=== PATIENT | male | born 1960 | race Caucasian/White ===

== ENCOUNTER → 2017-02-27 | Outpatient (CLI) | payer OTHER | LOC: SOLHO 10:41 | PROVIDERS: ATTEND Family Medicine | DX: I67.9 Cerebrovascular disease, unspecified (principal) ==

== ENCOUNTER 2017-05-13 08:19 | Inpatient (IN) | payer OTHER ==
[2017-05-13] MEDS ORDERED: HYDROcodone 7.5MG/APAP 325MG 1 EA TAB PO ONE (08:42)
--- NOTE | 2017-05-13 08:46 | ED.PDOC ---
History of Present Illness - General Chief Complaint: Back Pain or Injury Stated Complaint: Patient fell @ home injuring low back Time Seen by Provider: 05/13/17 08:37 Source: patient, RN notes reviewed, Vital Signs reviewed, family, EMS Exam Limitations: no limitations - History of Present Illness Initial Comments: Patient comes in with low back/buttock pain after a fall at home. Reports he was putting his coat on and lost his balance and fell straight down onto his bottom. Denies any other injury from this fall but he did fall last week injuring his R ribs. EMS found his oxygen saturation to be 85% on RA at home. 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 His biggest complaint is actually his R ribs. Occurred: just prior to arrival Severity: moderate Injuries/Pain Location: chest - from fall last week, back, pelvis Reason for Fall: lost balance Loss of Consciousness: no loss of consciousness Improving Factors: rest Worsening Factors: movement Associated Symptoms (Fall): denies symptoms - except as above Allergies/Adverse Reactions: Allergies Ibuprofen Allergy (Verified 05/13/17 09:18) Penicillins Allergy (Verified 03/23/16 19:08) Home Medications: Ambulatory Orders Carvedilol 25 mg PO BID 03/23/16 Clonazepam 0.5 mg PO TID 03/23/16 Clopidogrel Bisulfate [Plavix] 75 mg PO QD 03/23/16 Duloxetine HCl 60 mg PO DAILY 03/23/16 amLODIPine BESYLATE [Norvasc] 5 mg PO BEDTIME #30 tab 03/26/16 Amitriptyline HCl [Elavil 100MG] 100 mg PO BEDTIME 05/13/17 Cetirizine HCl 10 mg PO DAILY 05/13/17 Docusate Sodium [Colace Cap] 100 mg PO BID 05/13/17 Duloxetine HCl 30 mg PO DAILY 05/13/17 HYDROcodone 7.5MG/APAP 325MG [[place] 7.5/325] 1 ea PO QID 05/13/17 Venlafaxine HCl 200 mg PO BEDTIME 05/13/17 Review of Systems - Review of Systems Constitutional: States: no symptoms reported EENTM: States: no symptoms reported Respiratory: States: cough, other - R rib pain Cardiology: States: no symptoms reported Gastrointestinal/Abdominal: States: no symptoms reported Musculoskeletal: States: see HPI, back pain - lumbar and R posterior pelvis Skin: States: no symptoms reported Neurological: States: no symptoms reported, pre-existing deficit - R sided paralysis All other Systems: No Change from Baseline Past Medical History (General) - Patient Medical History Hx Seizures: No Hx Stroke: Yes - Jul 13 2015 Hx Asthma: No Hx of COPD: No Hx Congestive Heart Failure: No Hx Pacemaker: No Hx Hypertension: Yes - pt has had for years takes meds. Hx Diabetes: No Hx Cancer: No Hx Hepatitis C: No Hx MRSA: No - Vaccination History Hx Tetanus, Diphtheria Vaccination: - unk Hx Influenza Vaccination: - unk Hx Pneumococcal Vaccination: - unk - Social History Hx Tobacco Use: No Hx Chewing Tobacco Use: No Hx Alcohol Use: No Hx Substance Use: No Hx Substance Use Treatment: No Hx Depression: No Hx Physical Abuse: No Hx Emotional Abuse: No Hx Suspected Abuse: No - Female History Patient : No Physical Exam - Physical Exam General Appearance: Alert, Comfortable, No apparent distress, Well Developed, Well Groomed, Well Hydrated, Well Nourished Head Injury: no evidence of injury ENT Exam: hearing grossly normal, no evidence of ENT injury, no dental injury Cardiovascular/Respiratory: regular rate, rhythm, no M/R/G, rhonchi - on Right, other - decreased breath sounds R lower lung/ tender over R lower ribs Gastrointestinal/Abdominal: normal bowel sounds, non tender, soft, no organomegaly Back Exam: no CVA tenderness, vertebral tenderness - over mid lumbar spine and R posterior pelvis/sacrum Extremity Exam: no evidence of injury, non-tender, no pedal edema Neurologic: alert, normal mood/affect, oriented x 3 Skin Exam: normal color, warm/dry - [place] Coma Score Best Eye Response ([place]): (4) open spontaneously Best Verbal Response ([place]): (5) oriented Best Motor Response ([place]): (6) obeys commands [place] Total: 15 Progress - Progress Progress: 05/13/17 10:[address] Renteria. Will admit for pneumonia, hypoxia and pain control for L1 compression fx. - EKG/XRAY/CT XRAY: chest - RLL pneumonia/ Ribs: R 7th & 8th rib fxs - Additional EKG/XRAY/Consults XRAY #2: L-Spine: L1 compression Fx XRAY #3: pelvis - /sacrum: no fractures Departure - Departure Clinical Impression: Hypoxia Right lower lobe pneumonia Qualifiers: Pneumonia type: due to unspecified organism Qualified Code(s): J18.1 - Lobar pneumonia, unspecified organism Compression fracture of L1 lumbar vertebra Qualifiers: Encounter type: initial encounter Fracture type: closed Qualified Code(s): S32.010A - Wedge compression fracture of first lumbar vertebra, initial encounter for closed fracture Ribs, multiple fractures Qualifiers: Encounter type: initial encounter Fracture type: closed Laterality: right Qualified Code(s): S22.41XA - Multiple fractures of ribs, right side, initial encounter for closed fracture Time of Disposition: 10:07 Disposition: Admit Patient Condition: Fair Departure Forms: ED Discharge - Pt. Copy, Patient Portal Self Enrollment Instructions: DI for Low Back Pain Referrals: Sukh Jensen III, MD [Primary Care Provider] - 1-2 Weeks Home Medications: Ambulatory Orders Carvedilol 25 mg PO BID 03/23/16 Clonazepam 0.5 mg PO TID 03/23/16 Clopidogrel Bisulfate [Plavix] 75 mg PO QD 03/23/16 Duloxetine HCl 60 mg PO DAILY 03/23/16 amLODIPine BESYLATE [Norvasc] 5 mg PO BEDTIME #30 tab 03/26/16 Amitriptyline HCl [Elavil 100MG] 100 mg PO BEDTIME 05/13/17 Cetirizine HCl 10 mg PO DAILY 05/13/17 Docusate Sodium [Colace Cap] 100 mg PO BID 05/13/17 Duloxetine HCl 30 mg PO DAILY 05/13/17 HYDROcodone 7.5MG/APAP 325MG [[place] 7.5/325] 1 ea PO QID 05/13/17 Venlafaxine HCl 200 mg PO BEDTIME 05/13/17 Decision To Admit - Decistion To Admit Decision to Admit Reason: Admit from ER Decision to Admit Date: 05/13/17 Decision to Admit Time: 10:05
--- NOTE | 2017-05-13 09:41 | RAD ---
EXAM DESCRIPTION: Chest,2 Views CLINICAL HISTORY: Cough/hypoxia/dec. BS R COMPARISON: CTA chest March 23, 2016 and a previous chest radiograph also from March 23, 2016. FINDINGS: Accounting for slight rotation, the cardiomediastinal silhouette is unremarkable. Some alveolar opacity in the right lung base which is new from the previous study and suspicious for pneumonia. Mild subsegmental atelectasis or scarring is noted in the left lung base. No definite pleural effusion. The lung volumes are within normal range. There is no pneumothorax or acute fracture. IMPRESSION: Right basilar pneumonia. Follow-up chest radiograph after treatment is recommended to document resolution. Electronically signed by: Wilfredo Cabrera MD 05/13/2017 9:40 AM [facility]
--- NOTE | 2017-05-13 09:43 | RAD ---
EXAM DESCRIPTION: Pelvis CLINICAL HISTORY: 56 years Male, pain s/p fall COMPARISON: None. FINDINGS: Single AP view of the pelvis was obtained. The left greater trochanter is partially excluded from this exam, but no displaced pelvic fracture or malalignment is seen. Vascular calcifications are noted. No additional soft tissue abnormality. IMPRESSION: Vascular calcifications, but no acute pelvic abnormality. If clinical suspicion of pelvic injury persists, CT should be considered. Electronically signed by: Wilfredo Cabrera MD 05/13/2017 9:41 AM [facility]
--- NOTE | 2017-05-13 09:45 | RAD ---
EXAM DESCRIPTION: Ribs,Right 3 Views CLINICAL HISTORY: pain s/p fall COMPARISON: None available FINDINGS: 3 views of the right-sided ribs show non or minimally displaced fractures involving the far anterolateral aspects of the right seventh and eighth ribs. No segmental rib fracture or pneumothorax. There is subsegmental atelectasis, contusion or pneumonia in the right lung base. No right-sided pleural fluid collection is identified. IMPRESSION: Non or minimally displaced fractures involving the right seventh and eighth ribs. No segmental rib fracture or pneumothorax. Abnormal appearance of the right lung base, different considerations include contusion, atelectasis or pneumonia. Electronically signed by: Wilfredo Cabrera MD 05/13/2017 9:44 AM [facility]
--- NOTE | 2017-05-13 09:46 | RAD ---
EXAM DESCRIPTION: Sacrum Coccyx CLINICAL HISTORY: 56 years Male, pain s/p fall COMPARISON: None. FINDINGS: 3 views of the sacrum and coccyx show no displaced sacral or coccygeal fracture. The sacroiliac joints are well-maintained. No soft tissue abnormality. IMPRESSION: Negative exam. Electronically signed by: Wilfredo Cabrera MD 05/13/2017 9:44 AM [facility]
--- NOTE | 2017-05-13 09:47 | RAD ---
EXAM DESCRIPTION: Lumbar Spine 3 Views CLINICAL HISTORY: 56 years Male, pain s/p fall COMPARISON: None. FINDINGS: 3 views of the lumbar spine show mild anterior compression of the L1 vertebral body with slightly irregular appearance of the superior endplate suspicious for fracture. No additional vertebral body fracture or subluxation is identified. There is a large amount of stool and gas scattered throughout the colon. IMPRESSION: L1 compression fracture resulting in approximately 20-30% loss of anterior vertebral body height, possibly acute. CT or MRI could be performed for further evaluation if clinically relevant. No additional acute lumbar spine abnormality. Electronically signed by: Wilfredo Cabrera MD 05/13/2017 9:46 AM [facility]
[2017-05-13] MEDS ORDERED: levoFLOXacin 500MG IV 500 MG in PREMIX BAG 1 BAG IVPB ONE (10:04)
[2017-05-13] MEDS ORDERED: levoFLOXacin 500MG IV 100 ML IVPB ONE (10:27)
[2017-05-13] MEDS ORDERED: ONDANSETRON INJ 4 MG/2 ML VIAL IV PRN (13:32)
[2017-05-13] MEDS: MORPHINE SULFATE INJ 10 MG/ML VIAL IV PRN ×3 (14:13→18:37)
[2017-05-13] MEDS ORDERED: HYDROcodone 7.5MG/APAP 325MG 1 EA TAB PO PRN (16:00)
[2017-05-13] MEDS: SODIUM CHLORIDE 0.9% 1000ML 1,000 ML IVS PRN (16:12)
[2017-05-13] MEDS ORDERED: CLOPIDOGREL 75 MG TAB PO SCH (16:30)
[2017-05-13] MEDS ORDERED: traMADol HCL 50 MG TAB PO PRN (16:30)
[2017-05-13] MEDS: DULoxetine HCL 30 MG CAP PO SCH (17:26)
[2017-05-13] MEDS: [UNRECOGNIZED DRUG - REMARK] PO SCH (17:26)
[2017-05-13] MEDS: IV SET AND CAP CHANGE INJ INJ SCH (17:27)
[2017-05-13] MEDS: HYDROcodone 7.5MG/APAP 325MG 1 EA TAB PO SCH ×2 (17:28→21:19)
[2017-05-13] MEDS: IPRATROPIUM/ALBUTEROL 3 ML VIAL NEB SCH ×2 (17:47→20:24)
--- NOTE | 2017-05-13 18:19 | HP ---
HISTORY OF PRESENT ILLNESS: This 56 year-old white male has been quite significantly disabled because of right sided weakness after a CVA which occurred in June of 2014. At the present time, he is having difficulty speaking and has had some severe fall episodes recently. Earlier today while at home where he lives with his parents, he fell with his quad cane not providing enough firm reference to keep him from falling. He fell backwards and sat down hard on the floor and was unable to get up because of pain in his back. He has been on hospice care at home because of advanced disability from his CVA. In the Emergency Room, he was found to have a room air saturation of only 85%. A few days previously at a time which he cannot recall, he fell up against something and injured his right ribs. This has resulted in some pleuritic component when he would take deep breaths. He has been undergoing rehabilitation at the [facility] until a few weeks ago when he stopped going and feels that he is a little weaker now after having stopped going to rehab. He was admitted to the hospital when a right lower lobe pneumonia was found on x-ray in proximity to 2 broken ribs from a recent fall. PAST MEDICAL HISTORY: 1. Hypertension. 2. Cerebrovascular accident which occurred in June of either 2014 which he states or 2015. PAST SURGICAL HISTORY: 1. Coronary angiography at [facility]. CURRENT MEDICATIONS: Please refer to the complete list of verified medicines taken at home. ALLERGIES: PENICILLIN WHICH GIVE HIM A RASH. FAMILY HISTORY: Positive for coronary artery disease and chronic obstructive pulmonary disease. 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 He stopped smoking about 2 years ago and also stopped chewing tobacco at that time. REVIEW OF SYSTEMS: He has had some recent weight gain. No fever or chills. HEENT: Some difficulty speaking and with balance. He has not injured his head with his recent falls. LUNGS: Some shortness of breath upon exertion. CARDIOVASCULAR: He does have some chest pain laterally on the right after an injury and a pleuritic component when he breathes deeply also on the right. No hemoptysis or significant sputum production. ABDOMEN: Appetite has been fairly good recently. No bleeding in the bowel movements. GENITOURINARY: No dysuria. EXTREMITIES: Right side is weak. NEUROLOGIC: History of CVA with right sided weakness and some slight slurring of speech with the patient being right handed. The patient has significant disability living with his parents at home and hospice care with [facility] has been helping. PHYSICAL EXAMINATION: VITAL SIGNS: Afebrile, pulse 66, blood pressure 111/71, pulse oximetry 94% on 3 liters nasal cannula. Apparently it was down to 85 as recorded by EMS on their initial evaluation. GENERAL: The patient is able to answer questions. There is a slight degree of confusion at times, especially as it relates to dates. His mother also came in and was very helpful to add to the collection of health information. HEENT: Hearing appears to be fairly good. Speech is somewhat slurred at times. NECK: Supple. No adenopathy. CHEST: Lungs have some diminished breath sounds especially in the right base with some rhonchi more on the right base than the left. CARDIOVASCULAR: Tones are regular without any significant gallops. ABDOMEN: Soft though slightly distended and no organomegaly or masses or tenderness evident. EXTREMITIES: Decreased muscular strength and coordination of the right extremities. NEUROLOGIC: History of CVA in the past with residual right hemiparesis as well as some difficulty with dysarthria. No choking spells. LABORATORY: White count is 12,200 with 77% neutrophils, hemoglobin is up to 16.1. Potassium 4.3, BUN 8, creatinine 0.56, glucose 93. Liver enzymes are normal. Albumin 4.4. Urinalysis is clean. RADIOLOGY: X-rays of the lumbar spine reveal about a 20 to 30% compression fracture of the L1 vertebrae. Sacrum and coccyx showed no acute fractures. Ribs showed fractures of the right sided seventh and eighth ribs with underlying infiltrate. Chest x-ray does show evidence of a right lower lobe pneumonia apparently related somewhat to the rib fractures. Could be a pulmonary contusion. ASSESSMENT: 1. Acute right lower lobe pneumonia probable community acquired versus pulmonary contusion from injury to the rib cage. 2. Multiple rib fractures especially involving right seventh and eighth ribs. 3. Hypoxia requiring oxygen supplementation possibly related to a shunt because of the pulmonary contusion and/or infiltrative inflammatory pneumonia. 4. Acute fall from standing position. 5. Resultant L1 vertebral compression fracture of about 20 to 30% noted. Continue to observe symptoms and if not improving consider MRI to evaluate for retropulsed fragments. 6. History of acute cerebrovascular accident with residual right sided hemiparesis in June of a year ago or more. 7. Possibility of some underlying chronic obstructive pulmonary disease in a chronic smoker now stopped. PLAN: The patient is admitted to the hospital for initiation of special care under hospice inpatient supervision. He will be given low flow IV solution with Levaquin IV for underlying right lower lobe pneumonia. Analgesia for fractured ribs and vertebral fracture to continue. Special attention to increase strength and ability as his strength improves to the point where he will be able to continue with rehabilitation as an outpatient. Eventually can be cared for by Dr. Jensen when he is able to return home from his hospital stay. Dr. Jacobs will be very helpful in helping to manage him in the interim during Dr. Jensen' absence. Please refer to orders. #[id number] MTDD
[2017-05-13] MEDS ORDERED: HYDROmorphone HCL INJ 2 MG/ML VIAL IV ONE (19:42)
[2017-05-13] MEDS: SODIUM CHLORIDE 0.9% (FLUSH) 10 ML SYG IV PRN ×3 (19:58→23:11)
[2017-05-13] MEDS ORDERED: HYDROcodone 7.5MG/APAP 325MG 1 EA TAB PO SCH (20:00)
[2017-05-13] MEDS ORDERED: VENLAFAXINE HCL 150 MG PO SCH (21:00)
[2017-05-13] MEDS ORDERED: AMLODIPINE BESYLATE 5 MG PO SCH (21:00)
[2017-05-13] MEDS ORDERED: AMITRIPTYLINE HCL 150 MG PO SCH (21:00)
[2017-05-13] MEDS ORDERED: DOCUSATE SODIUM 100 MG CAP PO SCH (21:00)
[2017-05-13] MEDS ORDERED: CLONAZEPAM 0.5 MG PO SCH (21:00)
[2017-05-13] MEDS ORDERED: NON-FORMULARY MEDICATION 1 EA MIS (Duloxetine Hcl [Duloxetine Hcl] 60 MG) PO SCH (21:00)
[2017-05-13] MEDS: VENLAFAXINE 150 MG PO SCH (21:14)
[2017-05-13] MEDS: AMITRIPTYLINE 150 MG PO SCH (21:14)
[2017-05-13] MEDS: GUAIFENESIN 400 MG PO SCH (21:15)
[2017-05-13] MEDS: CARVEDILOL 25 MG PO SCH (21:16)
[2017-05-13] MEDS: amLODIPine BESYLATE 5 MG TAB PO SCH (21:17)
[2017-05-13] MEDS: DOCUSATE SODIUM 100 MG CAP PO SCH (21:17)
[2017-05-13] MEDS: HYDROmorphone HCL INJ 2 MG/ML VIAL IV PRN ×2 (21:28→23:11)
[2017-05-14] MEDS: NON-FORMULARY MEDICATION 1 EA MIS (Carvedilol [Carvedilol] 25 MG) PO SCH ×2 (00:06→19:48)
[2017-05-14] MEDS: SODIUM CHLORIDE 0.9% (FLUSH) 10 ML SYG IV PRN ×3 (00:42→15:36)
[2017-05-14] MEDS: HYDROmorphone HCL INJ 2 MG/ML VIAL IV PRN ×7 (00:43→21:19)
[2017-05-14] MEDS: IPRATROPIUM/ALBUTEROL 3 ML VIAL NEB SCH ×4 (08:57→21:09)
[2017-05-14] MEDS ORDERED: DULOXETINE HCL 30 MG PO SCH (09:00)
[2017-05-14] MEDS ORDERED: DULoxetine HCL 30 MG CAP PO SCH (09:00)
[2017-05-14] MEDS: HYDROcodone 7.5MG/APAP 325MG 1 EA TAB PO SCH ×4 (10:03→21:24)
[2017-05-14] MEDS: DOCUSATE SODIUM 100 MG CAP PO SCH ×2 (10:04→21:18)
[2017-05-14] MEDS: CARVEDILOL 25 MG PO SCH ×2 (10:05→21:25)
[2017-05-14] MEDS: CLOPIDOGREL 75 MG TAB PO SCH (10:05)
[2017-05-14] MEDS: GUAIFENESIN 400 MG PO SCH ×3 (10:05→21:21)
[2017-05-14] MEDS: DULoxetine HCL 30 MG CAP PO SCH (10:06)
[2017-05-14] MEDS: [UNRECOGNIZED DRUG - REMARK] PO SCH (10:06)
[2017-05-14] MEDS: POLYETHYLENE GLYCOL 3350 17 GM PCKT PO SCH (10:08)
[2017-05-14] MEDS: SODIUM CHLORIDE 0.9% 1000ML 1,000 ML IVS PRN (10:18)
[2017-05-14] MEDS ORDERED: levoFLOXacin 500MG IV 100 ML IVPB ONE (14:08)
[2017-05-14] MEDS: levoFLOXacin 500MG IV 500 MG in PREMIX BAG 1 BAG IVPB SCH (14:37)
[2017-05-14] MEDS: VENLAFAXINE 150 MG PO SCH (21:21)
[2017-05-14] MEDS: AMITRIPTYLINE 150 MG PO SCH (21:24)
[2017-05-14] MEDS: amLODIPine BESYLATE 5 MG TAB PO SCH (21:25)
[2017-05-15] MEDS: HYDROmorphone HCL INJ 2 MG/ML VIAL IV PRN ×2 (00:43→20:06)
[2017-05-15] MEDS: SODIUM CHLORIDE 0.9% 1000ML 1,000 ML IVS PRN (06:44)
[2017-05-15] MEDS ORDERED: levoFLOXacin 500MG IV 100 ML IVPB ONE (08:20)
[2017-05-15] MEDS: IPRATROPIUM/ALBUTEROL 3 ML VIAL NEB SCH ×4 (09:04→20:51)
[2017-05-15] MEDS: POLYETHYLENE GLYCOL 3350 17 GM PCKT PO SCH (09:43)
[2017-05-15] MEDS: DOCUSATE SODIUM 100 MG CAP PO SCH ×2 (09:44→20:36)
[2017-05-15] MEDS: [UNRECOGNIZED DRUG - REMARK] PO SCH (09:45)
[2017-05-15] MEDS: DULoxetine HCL 30 MG CAP PO SCH (09:45)
[2017-05-15] MEDS: GUAIFENESIN 400 MG PO SCH ×3 (09:46→20:36)
[2017-05-15] MEDS: CLOPIDOGREL 75 MG TAB PO SCH (09:48)
[2017-05-15] MEDS: HYDROcodone 7.5MG/APAP 325MG 1 EA TAB PO SCH ×3 (09:48→18:44)
[2017-05-15] MEDS: CARVEDILOL 25 MG PO SCH ×2 (09:50→20:37)
[2017-05-15] MEDS: levoFLOXacin 500MG IV 500 MG in PREMIX BAG 1 BAG IVPB SCH (15:29)
[2017-05-15] MEDS: VENLAFAXINE 150 MG PO SCH (20:36)
[2017-05-15] MEDS: amLODIPine BESYLATE 5 MG TAB PO SCH (20:37)
[2017-05-15] MEDS: AMITRIPTYLINE 150 MG PO SCH (20:37)
[2017-05-16] MEDS: HYDROmorphone HCL INJ 2 MG/ML VIAL IV PRN (00:11)
[2017-05-16] MEDS: HYDROcodone 7.5MG/APAP 325MG 1 EA TAB PO SCH ×4 (00:11→18:38)
[2017-05-16] MEDS: SODIUM CHLORIDE 0.9% 1000ML 1,000 ML IVS PRN (00:13)
[2017-05-16] MEDS: IPRATROPIUM/ALBUTEROL 3 ML VIAL NEB SCH ×4 (08:19→20:58)
[2017-05-16] MEDS: POLYETHYLENE GLYCOL 3350 17 GM PCKT PO SCH (09:40)
[2017-05-16] MEDS: [UNRECOGNIZED DRUG - REMARK] PO SCH (09:41)
[2017-05-16] MEDS: GUAIFENESIN 400 MG PO SCH ×3 (09:41→21:26)
[2017-05-16] MEDS: CLOPIDOGREL 75 MG TAB PO SCH (09:41)
[2017-05-16] MEDS: DULoxetine HCL 30 MG CAP PO SCH (09:41)
[2017-05-16] MEDS: CARVEDILOL 25 MG PO SCH ×2 (09:43→21:46)
[2017-05-16] MEDS: DOCUSATE SODIUM 100 MG CAP PO SCH ×2 (09:43→21:26)
[2017-05-16] MEDS ORDERED: KCL 20MEQ/0.45% NS 1,000 ML IVS PRN (12:56)
[2017-05-16] MEDS ORDERED: ALBUTEROL SULFATE 2.5 MG/3 ML VIAL NEB PRN (13:05)
--- NOTE | 2017-05-16 13:05 | RAD ---
Procedure: XR CHEST 1 VIEW Exam Date: 05/16/2017 12:02 PM LABORATORY MONITOR Ordering Provider: Herman Hargrove NP Clinical Indication: RLL pneumonia Comparison: May 13, 2017 Findings: There is right upper and midlung zone confluent opacity. This is more conspicuous compared to previous exam. Groundglass opacification is also seen throughout the left lung primarily involving the lateral one thirds of the left hemithorax. Trace bilateral pleural effusions are present. There is no pneumothorax. Heart size is upper limits of normal. Impression: Findings compatible with multilobar pneumonia with dense consolidation seen in the right upper and midlung zones. Recommend continued follow-up to document resolution. Electronically signed by: Denilson Watts MD 05/16/2017 1:03 PM LABORATORY MONITOR
[2017-05-16] MEDS ORDERED: methylPREDNISolone SODIUM SUC 125 MG/2 ML VIAL IV ONE (13:07)
[2017-05-16] MEDS: levoFLOXacin 750MG IV 750 MG in PREMIX BAG 1 BAG IVPB SCH (13:51)
[2017-05-16] MEDS: KCL 20MEQ/D5 1/2NS 1,000 ML IVS PRN ×2 (13:52→23:27)
[2017-05-16] MEDS ORDERED: SODIUM CHL 0.9% 50ML MIN-BAG+ 50 ML IVPB ONE ×2 (16:45→23:09)
[2017-05-16] MEDS ORDERED: CEFEPIME 2 GM VIAL IVPB ONE ×2 (16:45→23:09)
[2017-05-16] MEDS: CEFEPIME 2 GM in SODIUM CHL 0.9% 50ML MIN-BAG+ 50 ML IVPB SCH ×2 (16:46→23:31)
[2017-05-16] MEDS: IV SET AND CAP CHANGE INJ INJ SCH (16:47)
[2017-05-16] MEDS: SODIUM CHLORIDE 0.9% (FLUSH) 10 ML SYG IV PRN (17:36)
--- NOTE | 2017-05-16 19:29 | PCM.CORE ---
Physician DVT/VTE - Nurse DVT Assessment & Total Each Risk Factor Represents 3 Points: Medical PT with Hx of UT, CHF, Severe infection/sepsis Each Risk Factor Represents 2 Points: Confined to bed >72 hours Each Risk Factor Represents 1 Point: Age 41-60, Hx of smoking past year Each Risk Factor is 1 Point: Obesity (BMI >25) DVT Assessment Score: 8 - 5 or more Very High Risk Treatments: Early Ambulation *, Sequential Compression Device Pharmacological: Enoxaparin 40mg SQ Daily
[2017-05-16] MEDS: ENOXAPARIN SODIUM 40 MG/0.4 ML SYG SUBCU SCH (21:20)
[2017-05-16] MEDS: VENLAFAXINE 150 MG PO SCH (21:25)
[2017-05-16] MEDS: AMITRIPTYLINE 150 MG PO SCH (21:44)
[2017-05-16] MEDS: amLODIPine BESYLATE 5 MG TAB PO SCH (21:46)
[2017-05-17] MEDS: HYDROcodone 7.5MG/APAP 325MG 1 EA TAB PO SCH ×4 (00:53→18:13)
[2017-05-17] MEDS: HYDROmorphone HCL INJ 2 MG/ML VIAL IV PRN ×3 (03:16→15:36)
[2017-05-17] MEDS ORDERED: SODIUM CHL 0.9% 50ML MIN-BAG+ 50 ML IVPB ONE ×2 (08:07→15:37)
[2017-05-17] MEDS ORDERED: CEFEPIME 2 GM VIAL IVPB ONE ×2 (08:08→15:37)
[2017-05-17] MEDS: IPRATROPIUM/ALBUTEROL 3 ML VIAL NEB SCH ×4 (08:30→20:15)
--- NOTE | 2017-05-17 09:01 | PN ---
SUPERVISING PHYSICIAN: Octavio Jacobs MD DATE: 05/16/17 SUBJECTIVE: The patient was admitted on 05/13/17 under inpatient hospice care for initiation of antibiotics for right lower lobe pneumonia. He was initiated on antibiotics initially, but has not made any significant improvements. Hospice requested that I see the patient and assist with medical care and treatment plan. This morning, the patient was showing low saturations in the 70s even with a Ventimask. At the time of exam this morning, the patient was resting comfortably with a Ventimask in place, showing to be in no distress. After review of vital signs since admission, he has run a low grade fever of about 100.2. His saturations on high flow nasal cannula and Ventimask was 74% this morning and the patient was apparently showing some increased respiratory effort. He is on morphine and Ativan for patient comfort as well. I have ordered laboratory studies, x-rays and ABG. OBJECTIVE: VITAL SIGNS: T-max 100.2. Pulse 80. Blood pressure 120/77. Respirations significant at 36. Saturation on Ventimask is 85% and 88%. I&Os show positive balance of 224 with 1674 in, 1450 out. Weight 103.3 kg. CHEST: Lung sounds are diminished throughout with faint inspiratory and expiratory wheezing with coarse sounds overlying the posterolateral right lung cunningham. HEART: Regular rate and rhythm without appreciable murmurs, gallops, or rubs. ABDOMEN: Soft, nontender. Positive bowel sounds. EXTREMITIES: No cyanosis, clubbing or edema. NEUROLOGIC: The patient is lethargic, but will respond to voice command with opening his eyes and answering basis questions, but easily falls back to sleep. The patient has a history of CVA in the past with residual right hemiparesis with some difficulty. Per the patient's family, mental status has changed in the fact that he is less responsive, but he is on multiple pain medications as well. He has no history of choking spells, but again he does have a history of CVA in the past. LABORATORY: White count 13,200 compared to admission of 12,200 and previous 24 hours 11,600. Hemoglobin and hematocrit are stable at 14.7 and 43.3. Platelet count 285,000. Differential without an obvious left shift. Blood gasses show pH 7.4 with PC02 38, PC02 50, bicarb 23. Saturation 86% on 50% Ventimask. Chemistries show normal electrolytes with potassium 3.7, BUN 10, creatinine 0.46 , glucose 106. Liver functions within normal limits. Magnesium low at 2.0. Repeat urinalysis showed just trace intact blood with trace leukocytosis, otherwise within normal limits. MICROBIOLOGY: Urine culture on admission showed no growth at 48 hours. He has 2 sets of blood cultures that have been negative for 3 days. RADIOLOGY: Chest x-ray show findings compatible with multilobular pneumonia with a dense consolidation within the right upper and mid lung zones per radiologic interpretation. Review of previous x-rays prior to admission on because apparently the patient has had some falls, lumbar spine x-ray showed L1 compression fracture resulting in approximately 20% to 30% loss of anterior vertebral body height, possible acute. He also had sacrum and coccyx x -ray and per radiologic interpretation was negative. Rib series showed non and minimally displaced fractures involving the right seventh and eighth ribs. No segmental rib fracture, pneumothorax and abnormal appearance of the right lung base noted per radiologic interpretation. He also had a pelvis x-ray that showed vascular calcifications, no acute pelvic abnormality. ASSESSMENT: 1. Acute right middle and upper lobe pneumonia, probably community acquired with concerns for pseudomonas or possible aspiration event as being etiology of pneumonia with the patient having previous cerebrovascular accidents with risk for choking episodes and showing acute decline in condition despite initiation of Levaquin, with an underlying pulmonary contusion status post acute rib fracture involving the right seventh and eighth ribs status post fall with the patient having acute decline, showing an increasing leukocytosis with severe hypoxemia on arterial blood gas, requiring initiation of CPAP and initiation of additional parenteral antibiotics including increasing Levaquin to 750 and initiation of cefepime 2 grams q.8h. 2. Multiple rib fractures, especially involving right seventh and eighth ribs with concerns for underlying pulmonary contusion contributing to #1. 3. Hypoxia requiring more aggressive oxygen supplementation possibly related to a shunt for pulmonary contusion versus infiltrative inflammatory pneumonia as noted on current radiographic studies. 4. Acute same level fall resulting in acute vertebral compression fracture and multiple rib fractures. 5. L1 vertebral compression fracture of about 20 to 30% loss of height secondary previous same level fall with the patient requiring multiple analgesic medications. 6. History of acute cerebrovascular accident with residual right sided hemiparesis in June of 2015 with the patient currently under the care of [facility]. 7. Questionable underlying chronic obstructive pulmonary disease in a past smoker. PLAN: Hospice nurse for [facility] has visited with the family and on examination of the patient this morning requested that I see the patient to assist with the patient's plan of care. After visiting with the family, the family is wanting to be aggressive as possible, but no heroic efforts related to mechanical ventilation. They are okay with CPAP or BiPAP as needed. He has been on Levaquin 500 for the right sided pneumonia, but given that he has an acute change in his condition, I will increase his Levaquin to 750 and start him on cefepime 2 grams q.8h. for at least 24 hours with concerns for possible underlying pseudomonas with cultures pending. In regards to his analgesia plan , we will continue with the previous for the rib fractures and vertebral fractures. As he shows improvement clinically, we will plan on discharge planning as needed continued strengthening and further evaluation of the vertebral fracture. We will anticipate additional days in the hospital secondary to worsening of the condition of at least another 48 to 72 hours. He will be on CPAP as needed to help with oxygenation efforts and hopefully be able to titrate down to a nasal cannula. We will plan to repeat laboratory studies in the morning. Once clinically stable, the patient can transition back to outpatient hospice care under [facility]. Until then, we will continue to monitor the patient closely and treat appropriately. #[id number] [facility]
[2017-05-17] MEDS: CEFEPIME 2 GM in SODIUM CHL 0.9% 50ML MIN-BAG+ 50 ML IVPB SCH ×2 (09:15→15:39)
[2017-05-17] MEDS: DOCUSATE SODIUM 100 MG CAP PO SCH ×2 (09:20→20:46)
[2017-05-17] MEDS: [UNRECOGNIZED DRUG - REMARK] PO SCH (09:21)
[2017-05-17] MEDS: POLYETHYLENE GLYCOL 3350 17 GM PCKT PO SCH (09:21)
[2017-05-17] MEDS: DULoxetine HCL 30 MG CAP PO SCH (09:21)
[2017-05-17] MEDS: GUAIFENESIN 400 MG PO SCH ×3 (09:22→20:47)
[2017-05-17] MEDS: CLOPIDOGREL 75 MG TAB PO SCH (09:22)
[2017-05-17] MEDS: CARVEDILOL 25 MG PO SCH ×2 (09:22→20:46)
[2017-05-17] MEDS: KCL 20MEQ/D5 1/2NS 1,000 ML IVS PRN ×2 (09:49→21:13)
[2017-05-17] MEDS ORDERED: MAGNESIUM HYDROXIDE 30 ML UD PO PRN (12:24)
[2017-05-17] MEDS ORDERED: MAGNESIUM HYDROXIDE 30 ML UD PO ONE (12:26)
[2017-05-17] MEDS: levoFLOXacin 750MG IV 750 MG in PREMIX BAG 1 BAG IVPB SCH (13:42)
--- NOTE | 2017-05-17 16:00 | PN ---
DATE: 05/17/17 SUPERVISING PHYSICIAN: Octavio Jacobs M.D. SUBJECTIVE: The patient is feeling much better today. He is alert and talking. He actually was able to eat breakfast and he is able to maintain his O2 saturations on high flow nasal cannula. He has not had a fever in the last 24 hours. OBJECTIVE: VITAL SIGNS: T max 98.9, pulse 73, blood pressure 110/66, respirations 16, satting 94% on nasal cannula at 9 liters. I's and O's show a positive balance of 650 with 1675 in, 1025 out. Weight 103.3 kg. CHEST: Breath sounds are diminished but somewhat improved compared to yesterday. There is no obvious wheezing or rhonchi noted. HEART: Regular rate and rhythm. ABDOMEN: Obese but soft, non-tender. Positive bowel sounds. EXTREMITIES: No clubbing, cyanosis or edema. NEUROLOGIC: He was alert and oriented times three , conversing with his who reports that he is back to his baseline mental status. LABORATORY: White count is now normalized at 10,800 with hemoglobin 13.9, hematocrit 41.0, platelet count 298,000. Differential does show a left shift. Chemistries show normal electrolytes with potassium 4.3, BUN 17, creatinine 0.55 , glucose 172, calcium 8.0, magnesium 2.0 yesterday. RADIOLOGY: There are no new radiographic studies today. Will repeat a chest x- ray in the morning. ASSESSMENT: 1. Acute right middle and upper lobe pneumonia probably community acquired with concerns for Pseudomonas versus an aspiration event and likely etiology of the pneumonia with the patient having previous cerebrovascular accident and a slight risk of choking episode, and showing an acute decline in the past 24 hours requiring initiation of high dose Levaquin and Cefipime showing improvement along with initiation of CPAP. 2. Multiple rib fractures especially involving the right seventh and eighth ribs with concerns for an underlying pulmonary contusion contributing to #1. 3. Hypoxia requiring more aggressive oxygen supplementation secondary to a possible shunt from the pulmonary contusion as noted in #2 versus an infiltrative inflammatory pneumonia with radiographic studies showing an acute right sided pneumonia. 4. Acute same level fall resulting in vertebral compression fractures acutely with above-mentioned rib fractures. 5. L1 vertebral compression fracture with about 20 to 30% loss of height secondary to previous same level fall as noted above with the patient requiring multiple analgesic medications for pain control. 6. History of acute cerebrovascular accident with right sided hemiparesis in June of 2015 with the patient currently under the care of [facility]. 7. Chronic obstructive pulmonary disease in a past smoker with an exacerbation as noted from developing pneumonia in #1. PLAN: Will continue with current plan of care with Levaquin 750 daily and Cefipime 2 grams every 8 hours for an additional 24 hours and reassess clinically in the morning. She will be on CPAP as needed and has been titrated down to a high flow nasal cannula. If the patient does show clinical improvement, will hopefully be able to stop the Cefipime and continue with Levaquin, and transition to p.o. antibiotic coverage with anticipation of discharging home to continue with outpatient hospice care under [facility]. Will repeat chest x-ray and laboratory studies in the morning and until then continue to monitor and treat appropriately. #[id number] [facility]
[2017-05-17] MEDS: amLODIPine BESYLATE 5 MG TAB PO SCH (20:46)
[2017-05-17] MEDS: VENLAFAXINE 150 MG PO SCH (20:46)
[2017-05-17] MEDS: AMITRIPTYLINE 150 MG PO SCH (20:46)
[2017-05-17] MEDS: ENOXAPARIN SODIUM 40 MG/0.4 ML SYG SUBCU SCH (20:47)
[2017-05-18] MEDS ORDERED: CEFEPIME 2 GM VIAL IVPB ONE ×4 (00:16→23:37)
[2017-05-18] MEDS ORDERED: SODIUM CHL 0.9% 50ML MIN-BAG+ 50 ML IVPB ONE ×4 (00:16→23:37)
[2017-05-18] MEDS: CEFEPIME 2 GM in SODIUM CHL 0.9% 50ML MIN-BAG+ 50 ML IVPB SCH ×3 (00:18→15:40)
[2017-05-18] MEDS: HYDROcodone 7.5MG/APAP 325MG 1 EA TAB PO SCH ×4 (00:18→17:42)
[2017-05-18] MEDS: KCL 20MEQ/D5 1/2NS 1,000 ML IVS PRN (06:09)
[2017-05-18] MEDS: IPRATROPIUM/ALBUTEROL 3 ML VIAL NEB SCH ×4 (08:33→19:20)
--- NOTE | 2017-05-18 08:39 | RAD ---
EXAM DESCRIPTION: Chest,1 View CLINICAL HISTORY: 56 years Male, pneumonia COMPARISON: May 16, 2017 TECHNIQUE: Portable AP view FINDINGS: Mild congestive failure with partial interval improvement. The infiltrate within the right midlung has resolved. Persistent small effusions. IMPRESSION: Mild CHF. Small effusions. There has been some interval improvement Electronically signed by: Star Duran 05/18/2017 8:38 AM [facility]
[2017-05-18] MEDS: POLYETHYLENE GLYCOL 3350 17 GM PCKT PO SCH (09:23)
[2017-05-18] MEDS: [UNRECOGNIZED DRUG - REMARK] PO SCH (09:23)
[2017-05-18] MEDS: DOCUSATE SODIUM 100 MG CAP PO SCH ×2 (09:23→21:03)
[2017-05-18] MEDS: GUAIFENESIN 400 MG PO SCH ×3 (09:23→20:59)
[2017-05-18] MEDS: DULoxetine HCL 30 MG CAP PO SCH (09:23)
[2017-05-18] MEDS: CLOPIDOGREL 75 MG TAB PO SCH (09:23)
[2017-05-18] MEDS: CARVEDILOL 25 MG PO SCH ×2 (09:23→21:04)
[2017-05-18] MEDS ORDERED: ARFORMOTEROL TARTRATE 15 MCG/2 ML NEB NEB SCH (09:30)
[2017-05-18] MEDS: HYDROmorphone HCL INJ 2 MG/ML VIAL IV PRN ×3 (09:32→19:59)
[2017-05-18] MEDS: levoFLOXacin 750MG IV 750 MG in PREMIX BAG 1 BAG IVPB SCH (13:46)
--- NOTE | 2017-05-18 15:00 | PN ---
DATE: 05/18/17 SUPERVISING PHYSICIAN: Octavio Jacobs M.D. SUBJECTIVE: The patient continues to show improvement, although his white count did go up today. He has been afebrile and actually was able to do well overnight with the high flow nasal cannula. OBJECTIVE: VITAL SIGNS: T max 98.9, pulse 58, blood pressure 119/76 with respirations 20, satting 98% on nasal cannula on high flow at rest. I's and O' s show a positive balance of 3018 with 4093 in, 1075 out. He did have a large bowel movement. Weight is 103.3 kg. CHEST: Lung sounds are much improved today but continue to be diminished towards the bases bilaterally, but no rhonchi, wheezing or rales are noted. HEART: Regular rate and rhythm. ABDOMEN : Soft, non-tender. Positive bowel sounds. EXTREMITIES: No clubbing, cyanosis or edema. NEUROLOGIC: He is alert and oriented times three. LABORATORY: White count did go up to 14,300 today, hemoglobin 12.8, hematocrit 38.8, platelet count 347,000. Differential is within normal limits. Chemistries show normal electrolytes with potassium 4.3, BUN 17, creatinine 0.55. MICROBIOLOGY: Blood cultures remain negative after 5 days. Urine culture showed no growth at 48 hours. RADIOLOGY: Chest x-ray today per radiology interpretation shows mild congestive heart failure, small effusion. There is some small interval improvement. ASSESSMENT: 1. Acute right middle and upper lobe pneumonia community acquired with initial concerns for Pseudomonas versus aspiration event with the patient having previous cerebrovascular accident and some choking episodes having shown an acute decline requiring further aggressive management with a higher dose of Levaquin and initiation of Ceftin as well as initiation of CPAP now showing improvement clinically. 2. Multiple rib fractures of the right seventh and eighth ribs with concern for underlying pulmonary contusion contributing to #1. 3. Hypoxia requiring more aggressive oxygen supplementation secondary to possible shunt from pulmonary contusion as noted in #2 versus an infiltrative inflammatory pneumonia with radiographic studies showing acute right sided pneumonia showing improvement with initiation of antibiotics and utilizing CPAP. 4. Same level fall resulting in a vertebral compression fracture of L1 with about 20 to 30% loss of height secondary to previous same level fall as well as noted accompanying rib fractures with the patient requiring multiple analgesic medications for pain control. 5. Past cerebrovascular accident with right sided hemiparesis in June 2005 with the patient currently under the care of [facility]. 6. Chronic obstructive pulmonary disease in a past smoker with exacerbation as noted in #1 for developing pneumonia. PLAN: Will continue with current plan of care with Levaquin 750 as well as Cefipime for an additional 24 hours as he did show a slight increase in his leukocytosis which certainly could be secondary to some demarginalization from pain. Will closely monitor this and as he improves hopefully be able to deescalate his antibiotic regimen to Levaquin and transition to p.o. in anticipation of discharging home in the next day or two. Will keep close contact with [facility] on further management. He did have Physical Therapy evaluation today with requiring full assistance. Will need to work with [facility] on options for discharge in regards to the patient's need for assistance at home as the patient is again a fall risk until he has improvement in his strength. Until discharge, will continue to monitor and treat appropriately. Plan to repeat laboratory studies in the morning as well as a chest x-ray. #[id number] [facility]
[2017-05-18] MEDS: ENOXAPARIN SODIUM 40 MG/0.4 ML SYG SUBCU SCH (21:00)
[2017-05-18] MEDS: AMITRIPTYLINE 150 MG PO SCH (21:00)
[2017-05-18] MEDS: VENLAFAXINE 150 MG PO SCH (21:01)
[2017-05-18] MEDS: amLODIPine BESYLATE 5 MG TAB PO SCH (21:08)
[2017-05-19] MEDS: CEFEPIME 2 GM in SODIUM CHL 0.9% 50ML MIN-BAG+ 50 ML IVPB SCH ×2 (00:19→07:43)
[2017-05-19] MEDS: HYDROcodone 7.5MG/APAP 325MG 1 EA TAB PO SCH ×4 (00:21→18:26)
[2017-05-19] MEDS: KCL 20MEQ/D5 1/2NS 1,000 ML IVS PRN (05:03)
[2017-05-19] MEDS ORDERED: CEFEPIME 2 GM VIAL IVPB ONE (07:20)
[2017-05-19] MEDS ORDERED: SODIUM CHL 0.9% 50ML MIN-BAG+ 50 ML IVPB ONE (07:20)
--- NOTE | 2017-05-19 07:23 | RAD ---
Clinical History : pneumonia , MAIN Exam : Portable AP view of the chest 05/19/2017 7:00 AM [employer] Comparisons : Portable AP view of the chest May 18, 2017 Findings : The lungs are low in volume which accentuates the pulmonary vasculature. There is mild diffuse peribronchial thickening throughout the lungs bilaterally. There is confluent right upper lobe and retrocardiac airspace disease. There is a small left pleural effusion. The heart is stable in size. The mediastinal contours are normal in appearance. The thoracic spine is age appropriate. The shoulders are unremarkable. Limited evaluation of the upper abdomen demonstrates no gross abnormalities. Impression: Stable low lung volumes with right upper lobe and retrocardiac airspace disease. Electronically signed by: Lorin Mehta MD 05/19/2017 7:21 AM [employer]
[2017-05-19] MEDS: HYDROmorphone HCL INJ 2 MG/ML VIAL IV PRN ×3 (07:30→20:59)
[2017-05-19] MEDS: DOCUSATE SODIUM 100 MG CAP PO SCH ×2 (09:00→20:59)
[2017-05-19] MEDS: GUAIFENESIN 400 MG PO SCH ×3 (09:01→20:59)
[2017-05-19] MEDS: IPRATROPIUM/ALBUTEROL 3 ML VIAL NEB SCH ×4 (09:01→20:21)
[2017-05-19] MEDS: CARVEDILOL 25 MG PO SCH ×2 (09:02→20:59)
[2017-05-19] MEDS: CLOPIDOGREL 75 MG TAB PO SCH (09:02)
[2017-05-19] MEDS: DULoxetine HCL 30 MG CAP PO SCH (09:03)
[2017-05-19] MEDS: [UNRECOGNIZED DRUG - REMARK] PO SCH (09:04)
[2017-05-19] MEDS: POLYETHYLENE GLYCOL 3350 17 GM PCKT PO SCH (09:06)
[2017-05-19] MEDS: levoFLOXacin 750MG IV 750 MG in PREMIX BAG 1 BAG IVPB SCH (13:22)
--- NOTE | 2017-05-19 14:49 | PN ---
DATE: 05/19/17 SUPERVISING PHYSICIAN: Octavio Jacobs M.D. SUBJECTIVE: The patient continues to show good improvement. He has been able to maintain O2 saturations with high flow nasal cannula at night and throughout the day. He notes that he is feeling better. He was able to get up with Physical Therapy yesterday although required full assistance and had some continued pain in his ribs and back region. He did have a large bowel movement. He has had no nausea, vomiting or diarrhea and remains alert and oriented. I did discuss transitioning the patient to p.o. Levaquin starting tomorrow. I discussed at length with the family that the patient has shown good improvement and continue with p.o. medication after tomorrow more likely as long as he remains clinically stable with anticipation of discharging to a termite inspector care facility as both the patient and family agree that he is unable to be taken care of at home. OBJECTIVE: VITAL SIGNS: Temperature 98.4, pulse 59, blood pressure 119/75, respirations 18, satting 96% on high flow nasal cannula at 8 liters. I's and O' s show a positive balance of 50 with 2500 in, 2450 out. CHEST: Lungs are much more improved in regards to aeration but continue to be diminished towards the bases. There is no obvious rhonchi, wheezing or rales. HEART: Regular rate and rhythm. ABDOMEN: Soft, non-tender. Positive bowel sounds. EXTREMITIES: No clubbing, cyanosis or edema. NEUROLOGIC: He is alert and oriented times three. LABORATORY: White count has now normalized at 9,500 with hemoglobin 13.4, hematocrit 39.8, platelet count 361,000. Differential does show to be within normal limits. Chemistries continue to show normal electrolytes and stable with BUN 14, creatinine 0.46, glucose 79. MICROBIOLOGY: Blood cultures are negative after 5 days. Urine culture showed no growth at 48 hours. RADIOLOGY: Repeat chest x-ray today per radiology interpretation shows stable low lung volumes with right upper lobe and retrocardiac airspace disease. ASSESSMENT: 1. Chronic obstructive pulmonary disease in a past smoker with exacerbation with right upper and middle lobe pneumonia community acquired requiring more aggressive therapy with concerns for the patient having a Pseudomonas infection versus aspiration type event with the patient having previous cerebrovascular accidents and having some choking episodes as per family members with the patient initially showing acute decline requiring more aggressive medical management with initiation of high dose Levaquin and Cefipime as well as CPAP showing improvement and able to deescalate antibiotic regimen to parenteral Levaquin at 750 mg every 24 hours. 2. Multiple rib fractures of the right seventh and eighth ribs with concerning pulmonary contusion contributing to #1 requiring ongoing pain management. 3. Hypoxia secondary to #1 requiring more aggressive oxygenation supplementation secondary to question of pulmonary shunt from the pulmonary contusion as well as exacerbated by #1 with radiographic studies showing continued right sided consolidation with the patient showing improvement with CPAP and initiation of IV antibiotics able to transition to high flow nasal cannula. 4. Same level fall resulting in vertebral compression fracture of L1 with about 20 to 30% loss of height with accompanying rib fractures with the patient requiring multiple analgesic medications for pain control. 5. Past cerebrovascular accident with right sided hemiparesis this past June of 2015 with the patient requiring ongoing care through [facility]. PLAN: The patient is showing good clinical response to treatment and is able to deescalate antibiotics down to just Levaquin 750 mg every 24 hours with close observation with anticipation hopefully being able to discharge tomorrow. He did have an evaluation by Physical Therapy and is a full assist with recommendations that he either go to a termite inspector care facility for ongoing physical therapy or have sitters at home. In talking to the family, they are wishing along with the patient to go to [facility] where he was previously after he was discharged from [facility] in 2016 so that he can continue with physical therapy for a period of time until he can return home safely. I will discuss with Fang, our professor of social work, in the morning and [facility] to facilitate moving the patient to [facility] and continuation of p.o. antibiotics and bronchodilator treatments. The patient's labs have shown to have now stabilized with a normal white count, therefore I will not repeat laboratory studies in the morning as well as his chest x-ray which can be followed in the outpatient setting. Until discharge, will continue to monitor and treat appropriately. #[id number] [facility]
[2017-05-19] MEDS: IV SET AND CAP CHANGE INJ INJ SCH (16:19)
[2017-05-19] MEDS: AMITRIPTYLINE 150 MG PO SCH (20:59)
[2017-05-19] MEDS: amLODIPine BESYLATE 5 MG TAB PO SCH (20:59)
[2017-05-19] MEDS: VENLAFAXINE 150 MG PO SCH (20:59)
[2017-05-19] MEDS: ENOXAPARIN SODIUM 40 MG/0.4 ML SYG SUBCU SCH (21:01)
[2017-05-20] MEDS: HYDROcodone 7.5MG/APAP 325MG 1 EA TAB PO SCH ×3 (00:10→12:00)
[2017-05-20] MEDS: IPRATROPIUM/ALBUTEROL 3 ML VIAL NEB SCH ×3 (08:18→16:00)
[2017-05-20] MEDS ORDERED: levoFLOXacin 500 MG TAB PO SCH (09:00)
[2017-05-20] MEDS: DOCUSATE SODIUM 100 MG CAP PO SCH (09:13)
[2017-05-20] MEDS: [UNRECOGNIZED DRUG - REMARK] PO SCH (09:13)
[2017-05-20] MEDS: CLOPIDOGREL 75 MG TAB PO SCH (09:13)
[2017-05-20] MEDS: CARVEDILOL 25 MG PO SCH (09:14)
[2017-05-20] MEDS: GUAIFENESIN 400 MG PO SCH (09:15)
[2017-05-20] MEDS: POLYETHYLENE GLYCOL 3350 17 GM PCKT PO SCH (09:16)
[2017-05-20] MEDS: DULoxetine HCL 30 MG CAP PO SCH (09:22)
[2017-05-20] MEDS: KCL 20MEQ/D5 1/2NS 1,000 ML IVS PRN (09:36)
[2017-05-20 10:50] VITALS: BP 124/80; TEMP 97.8; O2SAT 97
[2017-05-20] MEDS ORDERED: methylPREDNISolone SODIUM SUC 40 MG/ML VIAL ONE (14:12)
--- NOTE | 2017-06-02 17:58 | DS ---
SUPERVISING PHYSICIAN: Facundo Perez M.D. ADMITTED TO HOSPICE: 05/13/17 DISCHARGED TO HOSPICE OUTPATIENT: 05/21/17 DISCHARGE DIAGNOSIS: 1. Chronic obstructive pulmonary disease in a past smoker with exacerbation with right upper and middle lobe pneumonia community acquired requiring more aggressive therapy with concerns for the patient having a Pseudomonas infection versus aspiration type event with the patient having previous cerebrovascular accidents and having some choking episodes as per family members with the patient initially showing acute decline requiring more aggressive medical management with initiation of high dose Levaquin and Cefipime as well as CPAP showing improvement with the patient discharged on oral Levaquin. 2. Multiple rib fractures of the right seventh and eighth ribs with concern for pulmonary contusion contributing to #1 requiring ongoing pain management. 3. Hypoxia secondary to #1 requiring more aggressive oxygenation supplementation secondary to question of pulmonary shunt from the pulmonary contusion as well as exacerbated by #1 with radiographic studies showing continued right sided consolidation with the patient having improvement with CPAP and initiation of IV antibiotics able to transition to high flow nasal cannula. 4. Same level fall resulting in vertebral compression fracture of L1 with about 20 to 30% loss of height with accompanying rib fractures with the patient requiring multiple analgesic medications for pain control. 5. Previous cerebrovascular accident with right sided hemiparesis this past June of 2015 with the patient requiring ongoing care from [facility]. HISTORY OF PRESENT ILLNESS: Mr. Hirsch is a 56 year-old white male patient that has been quite significantly disabled due to right sided weakness after a CVA which occurred in June of 2015. At the time, he was having difficulty speaking and had some severe fall episodes recently. Earlier on the date of admission while at home where he lives with his parents, he had fallen with his cane not providing enough firm reference to keep him from falling. He fell backwards and sat down hard on the floor and was unable to get up because of pain in his back. He has been on hospice care at home because of advanced disability from his CVA. In the Emergency Room, he was found to have a room air saturation of only 85%. A few days previously at a time which he cannot recall, he fell against something and injured his right ribs. This has resulted in a severe pleuritic component which he could not take deep breaths. He was undergoing rehabilitation at the [facility] until a few weeks ago when he stopped going and feels that he was a little weaker after having stopped going to rehab. He was admitted to the hospital with a right lower lobe pneumonia was found on x-ray in proximity to 2 broken ribs from a recent fall admitted to hospice inpatient care. LABORATORY: Initial CBC on admission showed 12,200 white count. He did max out to 14,300, however prior to discharge normalized to 9,500. Hemoglobin and hematocrit were stable, at discharge were 13.4 and 39.8. Platelet count at 361, 000. Differential did show a left shift but this resolved prior to discharge. Blood gas analysis on admission showed a PCO2 of 38, PO2 of 50, bicarb of 23 with pH of 7.4, satting 87% on room air. Chemistries showed fairly normal electrolytes showing sodium 138, potassium 3.9 at discharge. BUN and creatinine 14 and 0.46. Calcium was normal at 8.5 at discharge. Magnesium was normal at 2.0. Liver functions all showed to be within normal limits. Urinalysis on admission showed 3 to 5 WBCs, otherwise within normal limits. Repeat urinalysis on 05/16/17 showed trace intact blood with trace leukocyte esterase but within normal limits on the microscopic. MICROBIOLOGY: Urine culture had no growth at 48 hours. He had 2 sets of blood cultures that showed no growth at 5 days. RADIOLOGY: He had a chest x-ray in the Emergency Room prior to admission that showed a right basilar pneumonia per radiology interpretation. He also had a pelvis x-ray and per radiology interpretation had vascular calcification and no acute pelvic abnormalities. He had a rib series and per radiology interpretation there was non or minimally displaced fractures involving the right seventh and eighth ribs. No segmental or rib fracture pneumothorax. There was a normal appearance of the lung base. Considerations for pneumonia versus atelectasis. He did have a sacrum and coccyx x-ray and per radiology interpretation was a negative exam. He then had a lumbar spine x-ray that showed an L1 compression fracture resulting in approximately 20 to 30% loss of anterior vertebral body height, possibly acute. Please see that report for full details. He had a chest x-ray after admission and per radiology interpretation showed findings compatible with multilobular pneumonia with dense consolidation in the right upper and mid lung zones. Followup x-ray on per radiology interpretation showed stable low lung volumes with a right upper lobe and retrocardiac airspace disease. HOSPITAL COURSE: Mr. Hirsch was admitted as noted above. His hospitalization reason for pneumonia secondary to a fall with pulmonary contusion. He was admitted actually under the hospice inpatient care protocol under [facility]. At that time, he was started on antibiotics to include Levaquin and breathing treatments. He progressed poorly and on 05/16/17 hospice care requested that the patient be seen by the hospitalist service for assistance with worsening condition. An x-ray indicated multilobular pneumonia, therefore he was started on a higher dose of Levaquin 750 as well as Cefipime with concerns for possible Pseudomonas or an aspiration event. He was also started on BiPAP to assist with oxygenation and more aggressive pulmonary hygiene. He did show good improvement and was able to be weaned off the BiPAP onto a high flow nasal cannula, and actually mentation was normal baseline status. On 05/19, it was decided that the patient could continue with oral therapy with Levaquin, therefore hospice care requested the patient be discharged. PLAN: The patient is discharged under the care of [facility] for continuation of treatment in the outpatient setting. He needs close followup with the x-ray findings in the lumbar spine and resolution of the chest x-ray. He was instructed to followup with Dr. Jensen as needed arranged by [facility]. He was continued on Levaquin and breathing treatments. All other medications were resumed as previous to admission. Diet was regular diet as tolerated. Activity is as per Physical Therapy. Condition on discharge was stable and improved. #[id number] [facility]
== END 2017-05-20 17:20 | disposition hospice, home (50) | DRG 190 ==
LOC: ER 08:19 → MS 11:03
PROVIDERS: ADMIT Emergency Medicine; ATTEND Nurse Practitioner Family
DX: J44.0 Chronic obstructive pulmonary disease with (acute) lower respiratory infection (principal); J18.9 Pneumonia, unspecified organism; S27.321A Contusion of lung, unilateral, initial encounter; I69.351 Hemiplegia and hemiparesis following cerebral infarction affecting right dominant side; S22.41XA Multiple fractures of ribs, right side, initial encounter for closed fracture; S32.018A Other fracture of first lumbar vertebra, initial encounter for closed fracture; J44.1 Chronic obstructive pulmonary disease with (acute) exacerbation; R09.02 Hypoxemia; W18.30XA Fall on same level, unspecified, initial encounter; R29.6 Repeated falls; I10 Essential (primary) hypertension; Z88.0 Allergy status to penicillin; Y92.009 Unspecified place in unspecified non-institutional (private) residence as the place of occurrence of the external cause; Y93.9 Activity, unspecified; Z87.891 Personal history of nicotine dependence

== ENCOUNTER → 2017-05-27 | Outpatient (CLI) | payer OTHER | END | disposition home or self-care (01) | LOC: SOLHO 17:51 | PROVIDERS: ATTEND Family Medicine | DX: N39.0 Urinary tract infection, site not specified (principal); Z87.440 Personal history of urinary (tract) infections ==

== ENCOUNTER 2017-06-02 09:27 | Emergency (ER) | payer OTHER ==
[2017-06-02] MEDS ORDERED: LIDOCAINE 1% 10 ML VIAL INJ ONE ×2 (09:35→09:50)
[2017-06-02 09:40] VITALS: TEMP 97.7
--- NOTE | 2017-06-02 09:47 | ED.PDOC ---
History of Present Illness - General Chief Complaint: Laceration Stated Complaint: Laceration after a fall Time Seen by Provider: 06/02/17 09:30 Source: patient, RN notes reviewed, Vital Signs reviewed, family Exam Limitations: no limitations Additional Information: reports that patient got up on his own and fell to the right, right arm was impailed by furniture with resulting small laceration. Pt reports as well that had recent fall with rib fractures and was hospitalized. Since hospitalization patient has had episodes of shortness of breath. Uses albuterol 3 times daily and oxygen at night. does not know what his oxygen level is at these episodes of sob. currently patient has no chest pain/ sob/ abd pain/ loc/ headache or pain in extremities. baseline weakness to the right upper and lower extremities. no abnormal dysfunction from baseline - History of Present Illness Timing/Duration: 1-3 hours Severity: mild Improving Factors: nothing Worsening Factors: nothing Associated Symptoms: denies symptoms Allergies/Adverse Reactions: Allergies Ibuprofen Allergy (Verified 06/02/17 09:40) Penicillins Allergy (Verified 06/02/17 09:40) Home Medications: Ambulatory Orders Carvedilol 25 mg PO BID 03/23/16 Clonazepam 0.5 mg PO TID 03/23/16 Clopidogrel Bisulfate [Plavix] 75 mg PO QD 03/23/16 amLODIPine BESYLATE [Norvasc] 5 mg PO BEDTIME #30 tab 03/26/16 Amitriptyline HCl [Elavil 100MG] 150 mg PO BEDTIME 05/13/17 Cetirizine HCl 10 mg PO DAILY 05/13/17 Docusate Sodium [Colace Cap] 100 mg PO BID 05/13/17 Duloxetine HCl 90 mg PO DAILY 05/13/17 HYDROcodone 7.5MG/APAP 325MG [Adona 7.5/325] 1 ea PO QID 05/13/17 Venlafaxine HCl 150 mg PO BEDTIME 05/13/17 Albuterol Sulfate Nebs [Proventil Nebs] 2.5 mg INH Q6H PRN 06/02/17 Benzonatate Perles [Tessalon Perles] 100 mg PO Q6H PRN 06/02/17 Sulfa/Trimeth 800/160 (Ds) Tab [Bactrim DS] 1 tablet PO BID #6 tablet 06/02/17 Sulfamethoxazole-Trimethoprim [Bactrim Ds 800-160 mg] 1 tablet PO BID #14 tablet 06/02/17 Review of Systems - Review of Systems Constitutional: States: malaise. Denies: chills, fever EENTM: Denies: eye pain, ear pain, nose pain, throat pain, mouth pain Respiratory: States: cough, wheezing Cardiology: Denies: chest pain, edema, palpitations, syncope Gastrointestinal/Abdominal: Denies: abdominal pain, diarrhea, nausea Genitourinary: Denies: dysuria, frequency Musculoskeletal: Denies: joint pain, joint swelling, muscle pain, muscle stiffness, neck pain Skin: States: other - lipoma to back, laceration to arm Neurological: States: weakness - baseline weakness to right upper and lower extremities, walks with assistence. Denies: headache, numbness, paresthesia Endocrine: Denies: excessive sweating, flushing, intolerance to cold, intolerance to heat Past Medical History (General) - Patient Medical History Hx Seizures: No Hx Stroke: Yes - 2014 Hx Asthma: No Hx of COPD: No Hx Congestive Heart Failure: No Hx Pacemaker: No Hx Hypertension: Yes Hx Diabetes: No Hx Cancer: No Hx Hepatitis C: No Hx MRSA: No - Vaccination History Hx Tetanus, Diphtheria Vaccination: - unk Hx Influenza Vaccination: - unk Hx Pneumococcal Vaccination: - unk - Social History Hx Tobacco Use: No Hx Chewing Tobacco Use: No Hx Alcohol Use: No Hx Substance Use: No Hx Substance Use Treatment: No Hx Depression: No Hx Physical Abuse: No Hx Emotional Abuse: No Hx Suspected Abuse: No - Female History Patient : No Family Medical History - Family History Mother Family History: Unknown Age (years): 73 Living Status: Still Living Hx Family Asthma: No Hx Family Congestive Heart Failure: No Hx Family Hypertension: No Hx Family Stroke: No Hx Cardiac Disease: No Hx Family Diabetes: No Hx Family Cancer: No Hx Family;Other: other has irregular HR. Father Age (years): 73 Living Status: Still Living Hx Family Asthma: No Hx Family Congestive Heart Failure: No Hx Family Hypertension: Yes Hx Family Stroke: No Hx Cardiac Disease: No Hx Family Diabetes: No Hx Family Cancer: No Physical Exam - Physical Exam General Appearance: Alert, Well Developed, Well Groomed, Well Hydrated, Well Nourished Eye Exam: bilateral normal Ears, Nose, Throat: hearing grossly normal, normal ENT inspection, normal pharynx Neck: non-tender, full range of motion, supple, normal inspection Respiratory: chest non-tender, no respiratory distress, no accessory muscle use , plerual rub Cardiovascular/Chest: normal peripheral pulses, regular rate, rhythm, no edema, no gallop, no JVD, no murmur Peripheral Pulses: radial,right: 2+ Gastrointestinal/Abdominal: non tender, soft Back Exam: no CVA tenderness, no vertebral tenderness, other - lipoma Extremity: normal range of motion, non-tender, other - laceration to right posterior arm approx 3 cm with adipose tissue exposed, no arterial bleeding, no signs of foreign contamination 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 will increase o2 to as needed during the day at home. will also increase neb treatments to q4 prn sob. pt currently non toxic, no distress feel that patient is appropriate for trial of home treatment of pneumonia Procedures - Laceration/Wound Repair Right Upper Posterior Arm Wound's Depth, Shape: into muscle - small amount of muscle belly exposed not protruding through facia, wound extents aprox 3 cm deep with adipose tissue exposed, no arterial bleeding Wound Explored: no foreign body removed Irrigated w/ Saline (cc's): 300 Betadine Prep?: Yes Anesthesia: 1% Lidocaine Volume Anesthetic (cc's): 8 Wound Repaired With: sutures Suture Size/Type: 4:0, prolene Number of Sutures: 6 Layer Closure?: No Sterile Dressing Applied?: Yes Departure - Departure Clinical Impression: Laceration, Pneumonia Time of Disposition: 10:40 Disposition: Discharge to Home or Self Care Condition: Good Departure Forms: ED Discharge - Pt. Copy, Patient Portal Self Enrollment Instructions: DI for Laceration Repair, Pneumonia-Adult Diet: other - thickened liquid diet Activity: increase activity as tolerated Referrals: Sukh Jensen III, MD [Primary Care Provider] - 1-2 Weeks Prescriptions: Sulfa/Trimeth 800/160 (Ds) Tab [Bactrim DS] 1 tablet PO BID #6 tablet Sulfamethoxazole-Trimethoprim [Bactrim Ds 800-160 mg] 1 tablet PO BID #14 tablet Home Medications: Ambulatory Orders Carvedilol 25 mg PO BID 03/23/16 Clonazepam 0.5 mg PO TID 03/23/16 Clopidogrel Bisulfate [Plavix] 75 mg PO QD 03/23/16 amLODIPine BESYLATE [Norvasc] 5 mg PO BEDTIME #30 tab 03/26/16 Amitriptyline HCl [Elavil 100MG] 150 mg PO BEDTIME 05/13/17 Cetirizine HCl 10 mg PO DAILY 05/13/17 Docusate Sodium [Colace Cap] 100 mg PO BID 05/13/17 Duloxetine HCl 90 mg PO DAILY 05/13/17 HYDROcodone 7.5MG/APAP 325MG [Adona 7.5/325] 1 ea PO QID 05/13/17 Venlafaxine HCl 150 mg PO BEDTIME 05/13/17 Albuterol Sulfate Nebs [Proventil Nebs] 2.5 mg INH Q6H PRN 06/02/17 Benzonatate Perles [Tessalon Perles] 100 mg PO Q6H PRN 06/02/17 Sulfa/Trimeth 800/160 (Ds) Tab [Bactrim DS] 1 tablet PO BID #6 tablet 06/02/17 Sulfamethoxazole-Trimethoprim [Bactrim Ds 800-160 mg] 1 tablet PO BID #14 tablet 06/02/17
[2017-06-02] MEDS ORDERED: SULFAMET/TRIMETHOPRIM 400/80 1 TAB PO ONE (09:51)
[2017-06-02] MEDS ORDERED: POVIDONE IODINE 10 % 15 ML UD TOP ONE (09:53)
[2017-06-02] MEDS ORDERED: NEOMYCIN-BACITRACIN-POLYMYXIN 0.9 GM UD TOP ONE (10:13)
[2017-06-02] MEDS ORDERED: TETANUS,DIPHTHERIA,PERTUSSIS 1 EA SYG IM ONE (10:25)
--- NOTE | 2017-06-02 10:31 | RAD ---
Procedure: XR CHEST 1 VIEW Exam Date: 06/02/2017 9:52 AM [employer] TECHNICIAN Ordering Provider: Al Borrero Clinical Indication: cough, shortness of breath, pleural rub Comparison: May 19, 2017 Findings: Interval development of a right basilar consolidation is present. Previously seen opacities within the right upper lobe and left lung have resolved. Heart size is normal. No pleural effusion or pneumothorax. Impression: Right basilar consolidation, possibly pneumonia or aspiration. Recommend follow-up to document resolution. Electronically signed by: Denilson Watts MD 06/02/2017 10:30 AM [employer] PROPULS[employer] TECHNICIAN
[2017-06-02 12:56] VITALS: BP 123/82; O2SAT 94
== END 2017-06-02 11:30 | disposition home or self-care (01) ==
LOC: ER 09:27
DX: S41.111A Laceration without foreign body of right upper arm, initial encounter (principal); R91.8 Other nonspecific abnormal finding of lung field; I10 Essential (primary) hypertension; Z23 Encounter for immunization; Z99.81 Dependence on supplemental oxygen; Z86.73 Personal history of transient ischemic attack (TIA), and cerebral infarction without residual deficits; W01.190A Fall on same level from slipping, tripping and stumbling with subsequent striking against furniture, initial encounter; Y92.9 Unspecified place or not applicable

== ENCOUNTER → 2017-07-16 | Outpatient (CLI) | payer OTHER | LOC: LAB.O 13:25 → EDSTATUS 14:20 | PROVIDERS: ATTEND Family Medicine | DX: I50.9 Heart failure, unspecified (principal); I67.9 Cerebrovascular disease, unspecified; I69.351 Hemiplegia and hemiparesis following cerebral infarction affecting right dominant side; I25.10 Atherosclerotic heart disease of native coronary artery without angina pectoris ==

== ENCOUNTER → 2018-04-03 | Outpatient (CLI) | payer MEDICARE | LOC: YCFC.O 08:21 | PROVIDERS: ATTEND Family Medicine | DX: Z00.00 Encounter for general adult medical examination without abnormal findings (principal); N39.0 Urinary tract infection, site not specified; E78.5 Hyperlipidemia, unspecified ==

== ENCOUNTER → 2018-04-04 | Outpatient (CLI) | payer MEDICARE | LOC: RESP 09:43 | PROVIDERS: ATTEND Family Medicine | DX: Z00.00 Encounter for general adult medical examination without abnormal findings (principal); I10 Essential (primary) hypertension ==

== ENCOUNTER → 2018-04-07 | Outpatient (CLI) | payer MEDICARE | LOC: YCFC.O 17:29 | PROVIDERS: ATTEND Family Medicine | DX: Z12.5 Encounter for screening for malignant neoplasm of prostate (principal) ==

== ENCOUNTER → 2018-04-15 | Outpatient (CLI) | payer MEDICARE | LOC: LAB.O 12:06 | PROVIDERS: ATTEND Family Medicine | DX: J44.9 Chronic obstructive pulmonary disease, unspecified (principal); R94.6 Abnormal results of thyroid function studies ==

== ENCOUNTER 2018-10-12 12:22 | Emergency (ER) | payer MEDICARE, OTHER ==
[2018-10-12] MEDS ORDERED: MORPHINE SULFATE INJ 10 MG/ML VIAL IV ONE ×3 (13:03→15:56)
--- NOTE | 2018-10-12 14:50 | CT ---
Procedure: CT HEAD WITHOUT IV CONTRAST Exam Date: 10/12/2018 12:41 PM CDT Ordering Provider: Wood Jacobs Clinical Indication: fall, hit head, on plavix, distant cva Comparison: None Technique: CT images of the head were obtained without contrast administration. Coronal and sagittal reformats were obtained. This exam was performed according to our departmental dose-optimization program which includes automated exposure control, adjustment of the mA and/or kV according to patient size and/or use of iterative reconstruction technique. Findings: There is no acute cortical infarction, hemorrhage, midline shift, mass effect, or hydrocephalus. Prominent remote infarction involves the dorsal left thalamus. Patchy and confluent areas of diminished attenuation are seen involving the subcortical and periventricular white matter, presumable related to small vessel occlusive disease. Global parenchymal volume loss is present. The calvaria and skull base are unremarkable. Paranasal sinuses and mastoid air cells are well aerated. Impression: No acute cortical infarction or hemorrhage. Moderate microvascular ischemic changes. Remote left thalamic lubricator granulator infarct. Electronically signed by: Denilson Watts MD 10/12/2018 2:47 PM CDT
--- NOTE | 2018-10-12 14:56 | RAD ---
STUDY: Right wrist radiograph. HISTORY: Pain with fall. COMPARISON: None. FINDINGS: Limited study due to positioning. No obvious displaced fracture. Soft tissues unremarkable. IMPRESSION: Limited evaluation due to positioning, however there is no obvious displaced fracture. Consider further evaluation with CT if there is persistent clinical concern for a nondisplaced fracture. Electronically signed by: Mateusz Russell MD 10/12/2018 2:53 PM CDT
--- NOTE | 2018-10-12 15:02 | RAD ---
STUDY: Right hip radiograph. HISTORY: Fall with pain. COMPARISON: None. FINDINGS: Minimally displaced intertrochanteric fracture with displacement of the lesser trochanter medially. No dislocation. IMPRESSION: Minimally displaced intertrochanteric fracture with displacement of the lesser trochanter medially. Electronically signed by: Mateusz Russell MD 10/12/2018 2:58 PM CDT
--- NOTE | 2018-10-12 15:03 | RAD ---
STUDY: Single frontal view of the pelvis. HISTORY: Pain with fall. COMPARISON: None. FINDINGS: Intertrochanteric right femoral fracture with displacement of the lesser trochanter medially below the femoral head. No other fracture. IMPRESSION: Intertrochanteric right femoral fracture with displacement of the lesser trochanter medially below the femoral head. Electronically signed by: Mateusz Russell MD 10/12/2018 3:00 PM CDT
[2018-10-12] MEDS ORDERED: POTASSIUM CHLORIDE ELIXIR 20 MEQ/15 ML UD PO ONE (15:15)
--- NOTE | 2018-10-12 15:45 | ED.PDOC ---
History of Present Illness - General Chief Complaint: Trauma Stated Complaint: Pt states he fell from standing level Time Seen by Provider: 10/12/18 12:40 Source: patient Exam Limitations: no limitations - History of Present Illness Initial Comments: Patient is a 57-year-old male presenting to the emergency room after a fall at home. The patient has had a stroke about 3 years ago that has left him with significant right-sided deficits. He has a chronic contracture to the right upper extremity with difficulty moving his shoulder and his elbow primarily. He has pain in his right elbow from a fall and bruise there. No definite palpable bony deformity but there is significant discomfort. Additionally the patient has pain to palpation over his right hip. He thinks that he might have hit his head in the fall and he is drowsy but possibly from the morphine that he had with EMS. No obvious head trauma. He is on chronic oxygen due to COPD. He does take Plavix for vascular disease. He does have a history of hypokalemia, BPH and very significant chronic pain issues. The patient does normally have a difficult time getting around and has had multiple past. Timing/Duration: momentarily Severity: severe Improving Factors: immobilization Worsening Factors: movement Associated Symptoms: denies symptoms Allergies/Adverse Reactions: Allergies Ibuprofen Allergy (Verified 10/12/18 12:34) Penicillins Allergy (Verified 10/12/18 12:34) Home Medications: Ambulatory Orders Carvedilol 25 mg PO BID 03/23/16 Clonazepam 0.5 mg PO TID 03/23/16 Clopidogrel Bisulfate [Plavix] 75 mg PO QD 03/23/16 Amitriptyline HCl [Elavil 100MG] 100 mg PO BEDTIME 05/13/17 Cetirizine HCl 10 mg PO DAILY 05/13/17 Docusate Sodium [Colace Cap] 100 mg PO BID 05/13/17 Duloxetine HCl 90 mg PO DAILY 05/13/17 Venlafaxine HCl 100 mg PO BEDTIME 05/13/17 Albuterol Sulfate Nebs [Proventil Nebs] 2.5 mg INH Q6H PRN 06/02/17 Cyclobenzaprine HCl [Flexeril] 10 mg PO DAILY 10/12/18 Furosemide 40 mg PO BID 10/12/18 Furosemide Oral Liquid [Lasix Oral Solution] 40 mg INH Q6H PRN 10/12/18 Guaifenesin [Mucus Relief] 1,200 mg PO QID 10/12/18 HYDROcodone 10MG/APAP 325MG [Bangor 10/325] 1 tab PO Q4H 10/12/18 Lisinopril 10 mg PO DAILY 10/12/18 Lorazepam [Lorazepam Intensol] 0.5 - 1 ml PO BEDTIME PRN 10/12/18 Polyethylene Glycol 3350 [Miralax] 17 gm PO BID 10/12/18 Potassium Chloride [K-Tab] 20 meq PO DAILY 10/12/18 Tamsulosin [Flomax] 0.4 mg PO QD 10/12/18 Review of Systems - Review of Systems Constitutional: States: see HPI - chronic issues EENTM: States: no symptoms reported Respiratory: States: no symptoms reported Cardiology: States: no symptoms reported Gastrointestinal/Abdominal: States: no symptoms reported Genitourinary: States: no symptoms reported Musculoskeletal: States: see HPI Skin: States: see HPI Neurological: States: see HPI Endocrine: States: no symptoms reported All other Systems: No Change from Baseline Past Medical History (General) - Patient Medical History Hx Seizures: No Hx Stroke: Yes - 2014 Hx Asthma: No Hx of COPD: Yes Hx Congestive Heart Failure: No Hx Pacemaker: No Hx Hypertension: Yes Hx Diabetes: No Hx Cancer: No Hx Hepatitis C: No Hx MRSA: No Surgical History: no surgical history - Vaccination History Hx Tetanus, Diphtheria Vaccination: - unk Hx Influenza Vaccination: - unk Hx Pneumococcal Vaccination: - unk - Social History Hx Tobacco Use: Yes Hx Chewing Tobacco Use: No Hx Alcohol Use: No Hx Substance Use: No Hx Substance Use Treatment: No Hx Depression: No Hx Physical Abuse: No Hx Emotional Abuse: No Hx Suspected Abuse: No - Activities of Daily Living Hospice Agency (if applicable):: [facility] - Female History Patient is a Female of Child Bearing Age (10 -59 yrs old): No Patient : No Family Medical History - Family History Mother Family History: Unknown Age (years): 73 Living Status: Still Living Hx Family Asthma: No Hx Family Congestive Heart Failure: No Hx Family Hypertension: No Hx Family Stroke: No Hx Cardiac Disease: No Hx Family Diabetes: No Hx Family Cancer: No Hx Family;Other: other has irregular HR. Father Age (years): 73 Living Status: Still Living Hx Family Asthma: No Hx Family Congestive Heart Failure: No Hx Family Hypertension: Yes Hx Family Stroke: No Hx Cardiac Disease: No Hx Family Diabetes: No Hx Family Cancer: No Physical Exam - Physical Exam General Appearance: Alert, Other - obviously uncomfortable. He prefers to lie on his left side secondary to pain. Ears, Nose, Throat: hearing grossly normal Neck: non-tender, supple Respiratory: lungs clear, normal breath sounds, no respiratory distress, no accessory muscle use Cardiovascular/Chest: normal peripheral pulses, other - regular rate Peripheral Pulses: radial,right: 2+, radial,left: 2+, dorsalis pedis,right: 2+, dorsalis pedis,left: 2+ Gastrointestinal/Abdominal: non tender, soft Rectal Exam: other - pelvis itself feels stable. 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 Bruising to the right elbow. He does have +1 edema to the right hand and the right foot which is chronic. He has significant pain with palpation and with movement of the right hip. Neurologic: alert, oriented x 3, other - the patient is initially significantly drowsy due to the morphine he received. He knows where he is and what is going on. Skin Exam: other - bruising to the right elbow. Comments: Vital Signs - 24 hr 10/12/18 10/12/18 10/12/18 12:36 12:40 13:36 Temperature 94.9 F L Pulse Rate [L 60 60 59 L finger] Respiratory 18 18 20 Rate Blood Pressure 151/93 149/96 [L arm] O2 Sat by Pulse 95 92 L Oximetry 10/12/18 14:36 Temperature Pulse Rate [L 66 finger] Respiratory 20 Rate Blood Pressure 185/126 [L arm] O2 Sat by Pulse 89 L Oximetry Progress - Progress Progress: 10/12/18 15:49 the patient is a 57-year-old male presenting to emergency room after a fall at home giving him a right-sided intertrochanteric fracture. Given his comorbidities, the patient is going to be transferred for higher level of care for orthopedic intervention. We were able to get imaging on all of the areas of pain except for the right elbow. He refused further attempts to get x-rays on this area. He does have a chronic flexion contracture of the elbow and initially no definite palpable bony abnormality. Even if it were broken, it would be unlikely to be benefited by surgical repair. The patient has required frequent dosing of IV morphine secondary to uncontrolled pain. He does appear to have a high tolerance for pain medications secondary to chronic opiate use due to his chronic pain issues. He does have some hypokalemia and has received a dose of oral potassium as well. The patient is being made nothing by mouth for now. Transferring for higher level of care. - Results/Orders Results/Orders: CT scan of the head shows no acute intracranial pathology. Chronic findings are present. X-ray of the right wrist shows no obvious new fracture positioning is not ideal. X-ray of the pelvis and the right hip show a right-sided intertrochanteric femoral fracture with displacement of the lesser trochanter medially below the femoral head. Laboratory Tests 10/12/18 10/12/18 10/12/18 14:48 14:48 14:48 WBC 6.4 RBC 4.59 L Hgb 14.9 Hct 44.4 MCV 96.8 H MCH 32.4 H MCHC 33.4 RDW 13.8 Plt Count 290 MPV 8.2 Absolute Neuts (auto) 4.30 Absolute Lymphs (auto) 1.30 Absolute Monos (auto) 0.50 Absolute Eos (auto) 0.20 Absolute Basos (auto) 0.10 Neutrophils % 66.8 Lymphocytes % 20.1 Monocytes % 8.4 Eosinophils % 2.7 Basophils % 2.0 PT 12.0 H INR 1.20 H PTT (SP) 28.9 Sodium 139 Potassium 3.1 L Chloride 100 L Carbon Dioxide 28 Anion Gap 14.1 BUN 10 Creatinine 0.61 BUN/Creatinine Ratio 16.4 Random Glucose 65 L Serum Osmolality 274.7 L Calcium 8.9 Total Bilirubin 0.5 AST 26 ALT 18 Alkaline Phosphatase 111 Serum Total Protein 7.7 Albumin 3.8 Globulin 3.9 H Albumin/Globulin Ratio 1.0 L Departure - Departure Clinical Impression: Intertrochanteric fracture of right femur Qualifiers: Encounter type: initial encounter Fracture type: closed Fracture alignment: displaced Qualified Code(s): S72.141A - Displaced intertrochanteric fracture of right femur, initial encounter for closed fracture Disposition: Transfer to Hospital Departure Forms: ED Discharge - Pt. Copy, Patient Portal Self Enrollment Referrals: Ralf Son MD [Primary Care Provider] - 1-2 Weeks Home Medications: Ambulatory Orders Carvedilol 25 mg PO BID 03/23/16 Clonazepam 0.5 mg PO TID 03/23/16 Clopidogrel Bisulfate [Plavix] 75 mg PO QD 03/23/16 Amitriptyline HCl [Elavil 100MG] 100 mg PO BEDTIME 05/13/17 Cetirizine HCl 10 mg PO DAILY 05/13/17 Docusate Sodium [Colace Cap] 100 mg PO BID 05/13/17 Duloxetine HCl 90 mg PO DAILY 05/13/17 Venlafaxine HCl 100 mg PO BEDTIME 05/13/17 Albuterol Sulfate Nebs [Proventil Nebs] 2.5 mg INH Q6H PRN 06/02/17 Cyclobenzaprine HCl [Flexeril] 10 mg PO DAILY 10/12/18 Furosemide 40 mg PO BID 10/12/18 Furosemide Oral Liquid [Lasix Oral Solution] 40 mg INH Q6H PRN 10/12/18 Guaifenesin [Mucus Relief] 1,200 mg PO QID 10/12/18 HYDROcodone 10MG/APAP 325MG [B[place]or 10/325] 1 tab PO Q4H 10/12/18 Lisinopril 10 mg PO DAILY 10/12/18 Lorazepam [Lorazepam Intensol] 0.5 - 1 ml PO BEDTIME PRN 10/12/18 Polyethylene Glycol 3350 [Miralax] 17 gm PO BID 10/12/18 Potassium Chloride [K-Tab] 20 meq PO DAILY 10/12/18 Tamsulosin [Flomax] 0.4 mg PO QD 10/12/18 Transfer to Outside Facility - Transfer Information Accepting Provider:: dr pettit Accepting Facility: [facility] Reason for Transfer: specialized care not available
[2018-10-12 17:18] VITALS: BP 174/112; TEMP 96.9; O2SAT 90
== END 2018-10-12 16:45 | disposition short-term general hospital (02) ==
LOC: ER 12:22
DX: S72.141A Displaced intertrochanteric fracture of right femur, initial encounter for closed fracture (principal); E87.6 Hypokalemia; R40.0 Somnolence; I69.351 Hemiplegia and hemiparesis following cerebral infarction affecting right dominant side; J44.9 Chronic obstructive pulmonary disease, unspecified; I99.9 Unspecified disorder of circulatory system; I10 Essential (primary) hypertension; Z99.81 Dependence on supplemental oxygen; Z79.02 Long term (current) use of antithrombotics/antiplatelets; Z87.891 Personal history of nicotine dependence; Z79.899 Other long term (current) drug therapy; Z88.6 Allergy status to analgesic agent; Z88.0 Allergy status to penicillin; W18.30XA Fall on same level, unspecified, initial encounter; Y92.009 Unspecified place in unspecified non-institutional (private) residence as the place of occurrence of the external cause
CPT/HCPCS: 70450; 72170; 73100; 73502; 80053; 85025; 85610; 85730; J2270